=== PATIENT | male | born 1980 | race African-American/Black ===

== ENCOUNTER 2019-10-21 10:37 | Inpatient (IN) ==
--- NOTE | 2019-10-21 13:52 | EKG Report ---
Test Performed on : 10/21/2019 12:57:21 PM Test Reason : Chest pain Blood Pressure : / mmHG Vent. Rate : 080 BPM Atrial Rate : 080 BPM P-R Int : 130 ms QRS Dur : 086 ms QT Int : 370 ms P-R-T Axes : 032 000 -30 degrees QTc Int : 426 ms Normal sinus rhythm. with sinus arrhythmia. T wave abnormality, consider inferior ischemia Abnormal ECG No previous ECGs available Confirmed by Hector ALEXANDRE, P.J.M ([id number]) on 10/22/2019 3:10:55 PM
[2019-10-21 15:19] LABS: CK INDEX 0.9 (0.0-2.5); CK-MB 9.16 ng/mL (0.0-5.0)
[2019-10-21] MEDS: NS 1,000 ML IV SCH (15:57)
[2019-10-21] MEDS: VOLTAREN 1% GEL TOP SCH ×2 (16:24→20:23)
[2019-10-21] MEDS: PEPCID PO SCH (20:23)
[2019-10-21] MEDS ORDERED: LOVENOX SUBQ SCH (21:30)
--- NOTE | 2019-10-21 21:59 | HISTORY AND PHYSICAL ---
CHIEF COMPLAINT: Chest pain for the last few days. HISTORY OF PRESENT ILLNESS: He is a 39-year-old male who came in my office with above symptoms. Pain is nonexertional, somewhat reproducible. EKG showed T- wave inversion in the inferior lead. CK in my office showed 1000. I was not able to fractionate MB index as well as troponin. Chest x-ray was stable. Basically admitted to the hospital for observation for rule out MA. Further follow-up. His index is negative, and he has mild rhabdomyolysis. Started on IV fluids. The patient was given topical diclofenac gel. Pain is somewhat improved, and EKG is nondiagnostic. Basically admitted to the hospital for observation and will do outpatient workup. PAST MEDICAL HISTORY: Hypertension, hyperlipidemia. PAST SURGICAL HISTORY: Bilateral inguinal hernia repair, right knee arthroscopy by Dr. Sepulveda. MEDICATIONS: Hyzaar 100/25 daily, Pepcid 40 daily, Welchol 625 mg 3 times daily. ALLERGIES: Not known. SOCIAL HISTORY: Single. Works in [employer]. Socially drinks alcohol. Lives in [place]. FAMILY HISTORY: Father is alive with hypertension at 73. Mom is 63 with anemia. HEALTH MAINTENANCE: Tetanus 2009, colonoscopy 2009. Last physical 02/10/2019. REVIEW OF SYSTEMS: HEENT: No headache, no visual problem, no earache, no sore throat. Neck: No goiter, no lymphadenopathy, no bruit. Cardiopulmonary: Chest pain as described. No PND, no orthopnea. Gastrointestinal: No nausea, vomiting, abdominal pain. Genitourinary: No history of hesitancy, frequency, dysuria. Musculoskeletal: No swelling of legs. No joint pain. Neurologic: No focal symptoms or weakness. PHYSICAL EXAMINATION: VITAL SIGNS: Stable. Temperature is 98 degrees, pulse 79. HEENT EXAM: Atraumatic, normocephalic. Pupils equal, reactive to light. TMs are normal. Nose and throat within normal limits. NECK: Supple. No lymphadenopathy. No goiter. CHEST: Bilateral air entry. CARDIOVASCULAR: Heart sounds are regular. ABDOMEN: Belly is soft, nontender. Good bowel sounds. NEUROLOGICAL: No neurological deficits. INVESTIGATIONS: CK 1000, MB slightly elevated, index is negative. Troponin is negative. ProBNP is normal. ASSESSMENT AND PLAN: Chest pain atypical. EKG nondiagnostic. Elevated CK. Follow up on serial cardiac enzymes. Check the labs in the morning. IV fluids, diclofenac gel as needed for pain. Continue on Pepcid and Lovenox for DVT prophylaxis, and if the patient is stable, we will do as an outpatient workup and will follow up. cc: Sagar Young MD MTDD
[2019-10-21 22:14] LABS: CK INDEX 0.8 (0.0-2.5); CK-MB 6.84 ng/mL (0.0-5.0)
[2019-10-22] MEDS: NS 1,000 ML IV SCH (04:11)
[2019-10-22 06:36] LABS: HEMATOCRIT 39.8 % (42.0-52.0); HEMOGLOBIN 12.9 g/dL (14.0-18.0); MCH 27.9 PG (27-31); MCHC 32.4 g/dL (33-37); MCV 86.1 FL (81-99); MPV 11.3 FL (7.4-10.4); RBC 4.62 XMIL (4.7-6.1); RDW 14.3 % (11.5-14.5); WBC 4.4 X1000 (4.8-10.8)
[2019-10-22 07:29] LABS: AGAP 12; BUN 16 mg/dL (8-22); CALCIUM 8.8 mg/dL (8.8-10.2); CHLORIDE 100 mmol/L (98-107); COSMO 281; CREATININE 1.3 mg/dL (0.7-1.2); ESTIMATED GFR > 60; GLUCOSE 102 mg/dL (70-104); MAGNESIUM 1.9 mg/dL (1.5-2.7); POTASSIUM 3.8 mmol/L (3.5-5.1); SODIUM 140 mmol/L (136-145); TCO2 28 mmol/L (25-35)
[2019-10-22 07:37] LABS: CK PROFILE 746 U/L (24-204)
--- NOTE | 2019-10-22 07:50 | EKG Report ---
Test Performed on : 10/22/2019 06:16:41 AM Test Reason : cp Blood Pressure : / mmHG Vent. Rate : 068 BPM Atrial Rate : 068 BPM P-R Int : 134 ms QRS Dur : 084 ms QT Int : 404 ms P-R-T Axes : 057 014 -08 degrees QTc Int : 429 ms Normal sinus rhythm. Nonspecific T wave abnormality Abnormal ECG When compared with ECG of 21-OCT-2019 12:57, (Unconfirmed) No significant change was found Confirmed by Hector ALEXANDRE, P.J.M ([id number]) on 10/22/2019 3:11:22 PM
[2019-10-22 08:00] VITALS: BP 159/83
[2019-10-22 08:14] LABS: CK INDEX 0.9 (0.0-2.5); CK-MB 6.57 ng/mL (0.0-5.0)
[2019-10-22] MEDS: PEPCID PO SCH (08:39)
[2019-10-22] MEDS: VOLTAREN 1% GEL TOP SCH (08:40)
[2019-10-22] MEDS ORDERED: WELCHOL PO SCH (09:00)
--- NOTE | 2019-10-23 18:40 | DISCHARGE SUMMARY ---
ADMISSION DATE: 10/21/2019 DISCHARGE DATE: 10/22/2019 DISCHARGING DIAGNOSIS: Chest pain and elevated CK, noncardiac, with musculoskeletal pain. SECONDARY DIAGNOSES: 1. Hypertension. 2. Hyperlipidemia. 3. Metabolic syndrome. BRIEF HISTORY: Please see the H and P that was done 10/21/2019. In brief he is a 39-year-old male who basically came in with chest pain on the left side associated with abnormal EKG inferior T wave inversion and the CK was 1000. The patient was admitted to the [facility] on observation. Followup CK index and troponin were negative. Chest x-ray was stable. Repeat EKG, no significant changes. The patient was slightly tender on the precordial area, which is improved after diclofenac gel. At this time, I believe this is probably due to musculoskeletal pain. The patient is anxious to go home. LABS: White cell count 4.4, hematocrit 39.8, platelet 157. Sodium 140, potassium 3.8, chloride 100, BUN 16, creatinine 1.3. A1c 6.0. Magnesium 1.9. CK was coming down from 1000 to 746. ProBNP was normal. Cardiac enzymes were normal. Chest x-ray was stable. DISCHARGE INSTRUCTIONS: 1. Outpatient workup. Follow up on CK, and if he continues to be symptomatic, will rule out structural heart disease. 2. Pepcid 40 p.o. daily, Hyzaar 100/12.5 daily, Welchol 65 daily, and diclofenac gel topical b.i.d. as needed. 3. Follow up in my office in 2 weeks. He had annual exam done in January 2019. cc: Sagar Young MD [facility]
== END 2019-10-22 11:17 | disposition home or self-care (01) ==
LOC: DIRADM → OBSVTOIN 10:37 → 2N 11:17
PROVIDERS: ADMIT Internal Medicine; ATTEND Internal Medicine